=== PATIENT | female | born 1965 | race American Indian/Alaskan Native ===

== ENCOUNTER 2017-03-12 09:33 | Emergency (ER) | payer BC ==
[2017-03-12 09:33] VITALS: BMI 21.5
--- NOTE | 2017-03-12 09:47 | ED PDOC ---
Arrival/HPI - General Time Seen by Provider: 03/12/17 09:46 Historian: Patient - History of Present Illness Narrative History of Present Illness (Text): 03/12/17 09:46 51 year old female, pmh including hypertension/migraine, post menopausal, nkda, complaining of rt. foot 5th digit toe pain x 2 hours s/p accidentally hit on the furniture. Aching pain, aggravated by touching, stated that she pull the toe as it was deformed but the 5th toe is still having the pain , no numbness or tingling, no fever or chills, no headache or night sweat, no dizziness, no other medical or psychological complaints. Past Medical History - Provider Review Nursing Documentation Reviewed: Yes - Cardiac Hx Hypertension: Yes - Neurological Hx Migraine: Yes - Musculoskeletal/Rheumatological Hx Falls: No - Psychiatric Hx Substance Use: No - Suicidal Assessment Feels Threatened In Home Enviroment: No Family/Social History - Physician Review Nursing Documentation Reviewed: Yes Family/Social History: Unknown Family HX Hx Alcohol Use: No Hx Substance Use: No Allergies/Home Meds Allergies/Adverse Reactions: Allergies No Known Allergies Allergy (Verified 03/12/17 10:12) Home Medications: Home Meds Medication Instructions Recorded Confirmed Losartan [Cozaar] 50 mg PO DAILY 04/24/14 03/12/17 Naproxen [Naprosyn] 0 mg PO PRN PRN 03/12/17 03/12/17 Review of Systems - Review of Systems Constitutional: absent: Fatigue, Fevers Eyes: absent: Vision Changes ENT: absent: Hearing Changes Respiratory: absent: SOB, Cough Cardiovascular: absent: Chest Pain Gastrointestinal: absent: Abdominal Pain, Diarrhea, Nausea, Vomiting Musculoskeletal: Arthralgias. absent: Back Pain, Joint Swelling, Myalgias Skin: absent: Rash, Pruritis, Skin Lesions Psychiatric: absent: Anxiety, Depression, Suicidal Ideation Physical Exam Vital Signs Reviewed: Yes Vital Signs Temp Pulse Resp BP Pulse Ox 03/12/17 12:26 79 18 145/69 98 03/12/17 11:10 89 18 148/74 98 03/12/17 10:09 98.5 F 97 H 16 152/79 H 99 Temperature: Afebrile Blood Pressure: Normal Pulse: Regular Respiratory Rate: Normal Appearance: Positive for: Well-Appearing, Non-Toxic, Comfortable Pain Distress: Moderate Mental Status: Positive for: Alert and Oriented X 3 - Systems Exam Head: Present: Atraumatic, Normocephalic Pupils: Present: PERRL Extroacular Muscles: Present: EOMI Conjunctiva: Present: Normal Mouth: Present: Moist Mucous Membranes Neck: Present: Normal Range of Motion Respiratory/Chest: Present: Clear to Auscultation, Good Air Exchange. No: Respiratory Distress, Accessory Muscle Use Cardiovascular: Present: Regular Rate and Rhythm, Normal S1, S2. No: Murmurs Abdomen: Present: Normal Bowel Sounds. No: Tenderness, Distention, Peritoneal Signs Upper Extremity: Present: Normal Inspection. No: Cyanosis, Edema Lower Extremity: Present: Normal Inspection, Other (Rt. foot: +ttp with swelling on the 5th toe with no nail injury and no subungal hematoma, 5th toe is approx. 40 degree laterally deviated, skin intact, no laceration or abrasion , FROM without limitation, sensation intact, motor 5/5, +DPPT pulses, capillary refill< 2 seconds, neurovascular intact. ). No: Edema Neurological: Present: GCS=15, Speech Normal, Motor Func Grossly Intact, Memory Normal Skin: Present: Warm, Dry, Normal Color. No: Rashes Psychiatric: Present: Alert, Oriented x 3, Normal Insight, Normal Concentration Medical Decision Making ED Course and Treatment: 03/12/17 10:30 -motrin -xray -cornell tapping/post shoe, crutches 03/12/17 11:25 -xray show 5th toe laterally deviated fracture. -sensation intact, motor 5/5, axial traction for reduction on the 5th toe, laterally deviation resolved, sensation intact, motor 5/5, cornell tapping, post op shoe applied, crutches. -xray re-order 03/12/17 12:04 -xray show improved reduction, will discharge home. 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 - RAD Interpretation Radiology Orders: 03/12/17 10:26 FOOT RIGHT 5TH DIGIT (TOE) [RAD] Stat 03/12/17 11:40 FOOT RIGHT 5TH DIGIT (TOE) [RAD] Stat Initial xray of the rt. foot 5th toe: oblique fracture of the proximal phalanx 5th toe. Post reduction xray of the rt. foot 5th toe: adequate reduction achieved, oblique fracture of the proximal phalanx 5th toe. 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 Yes Sleep Is patient sleeping during reassessment? 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 Disposition/Present on Arrival - Present on Arrival Any Indicators Present on Arrival: No History of DVT/PE: No History of Uncontrolled Diabetes: No Urinary Catheter: No History of Decub. 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 Prescriptions: Naproxen 500 mg PO BID #20 tab Referrals: Alissa Oakes DO [Primary Care Provider] - Follow up with primary Jerrod Urena DPM [Staff Provider] - Follow up with primary Forms: WORK NOTE
[2017-03-12 10:12] VITALS: TEMP 98.5
[2017-03-12 11:10] VITALS: RESP 18; O2SAT 98
[2017-03-12 12:27] VITALS: BP 145/69; PULSE 79
--- NOTE | 2017-03-12 13:13 | RAD ---
PROCEDURE: Radiographs of the rightf foot/small toe. TECHNIQUE:: AP radiograph of the right foot, with oblique and lateral view of the right small toe. COMPARISON: None. FINDINGS: BONES: There is an oblique fracture through the diaphysis of the proximal phalanx of the right small toe without dislocation. Fracture is impacted with lateral angulation of the distal fracture fragment. Remaining osseous elements of the right foot appear intact and are unremarkable. JOINTS: No dislocation or subluxation. SOFT TISSUES: Normal. OTHER FINDINGS: None. IMPRESSION: Oblique fracture proximal phalanx right small toe without dislocation.
--- NOTE | 2017-03-12 13:22 | RAD ---
PROCEDURE: Radiographs of the right small toe. TECHNIQUE:: AP radiograph of the right foot, with oblique and lateral view of the right small toe. COMPARISON: Right foot/small toe radiographs 03/12/2017 11:15 a.m.. FINDINGS: BONES: Adequate interval reduction of the proximal phalanx right small digit fracture has been achieved. No additional fractures appreciated throughout the remainder. JOINTS: Normal. SOFT TISSUES: Normal. OTHER FINDINGS: None. IMPRESSION: Status post reduction of proximal phalanx right small digit fracture without further fracture identified at this time. Adequate reduction has been achieved.
== END 2017-03-12 12:37 | disposition home or self-care (01) ==
LOC: ED 09:33
DX: S92.511A Displaced fracture of proximal phalanx of right lesser toe(s), initial encounter for closed fracture (principal); W22.03XA Walked into furniture, initial encounter; Y93.89 Activity, other specified; Y92.89 Other specified places as the place of occurrence of the external cause

== ENCOUNTER 2018-06-24 08:38 | Outpatient (CLI) | payer BC | END 2018-06-24 08:39 | disposition home or self-care (01) | LOC: RAD 08:38 ==